=== PATIENT | female | born 1965 | race Caucasian/White ===

== ENCOUNTER 2019-07-01 10:50 | Emergency (ER) | payer OTHER, SELFPAY ==
[2019-07-01 11:00] VITALS: BP 123/68; PULSE 86; RESP 18; TEMP 36.8; O2SAT 98
--- NOTE | 2019-07-01 11:11 | ED.URI ---
HPI - URI/Sore Throat General Chief Complaint: Upper Respiratory Infection Stated Complaint: sore throat/fever Time Seen by Provider: 07/01/19 11:11 Source: patient Mode of arrival: ambulatory Limitations: no limitations History of Present Illness HPI Narrative: Diana Au is a 54 yo female with no PMH who comes with a sore throat and temp of 100.5 x 3 days; states feels tired, not wanting to eat Related Data Allergies Allergy/AdvReac Type Severity Reaction Status Date / Time codeine Allergy Unknown PASSES OUT Verified 07/01/19 11:09 nickel Allergy Unknown RASH Verified 07/01/19 11:09 Penicillins Allergy Rash Verified 07/01/19 11:09 Review of Systems Review of Systems: Narrative: CONSTITUTIONAL:has fever, chills, sweats. EYES: Denies visual changes, redness, discharge. ENT: Denies rhinorrhea, congestion, has sore throat, otalgia. CARDIOVASCULAR: Denies chest pain, palpitations, edema. RESPIRATORY: Denies dyspnea, wheezing, denies cough GASTROINTESTINAL: Denies abdominal pain, nausea, vomiting, diarrhea. GENITOURINARY: Denies dysuria, hematuria, abnormal discharge SKIN: Denies rash or itching. NEUROLOGIC: Denies numbness, or focal weakness. PSYCHIATRIC: Denies anxiety or depression. [facility] Family History Family History Other No acute medical problems Social History Social History Smoking status: Never smoker Alcohol intake: current Comments At time of signature, I agree with nursing past medical, surgical, social and family history. There is no relevant family history pertinent to the presenting complaint. Exam Narrative: Exam Narrative: GENERAL: This is a well-nourished, well-developed patient, in mild distress. HEAD: normocephalic, atraumatic. EYES: Sclera clear/white. Vision is grossly intact. EARS: External ears normal, a Hearing grossly intact. NOSE: External nose normal without nasal discharge, nares without redness, mild rhinorrhea. THROAT: Mucous membranes moist, posterior pharynx erythema with no exudate NECK: Neck supple, non-tender CARDIOVASCULAR: Regular rate and rhythm without murmurs, gallops, or rubs. RESPIRATORY: Clear to auscultation. Breath sounds equal bilaterally. No wheezes, rales, or rhonchi. GASTROINTESTINAL: Abdomen soft, non-tender, SKIN: warm, intact with no suspicious lesions or rash, good texture and turgor. NEURO: awake, alert, and oriented to person, place and time. There were no obvious focal neurologic abnormalities. Steady gait EXTREMITIES: Normal range of motion. BACK: Nontender without deformity Course Course Emergency Course: Strep test negative Started on prednisone, Claritin, Cepacol lozenges Vital Signs Vital signs: Vital Signs Temperature 98.2 F 07/01/19 11:00 Pulse Rate 86 07/01/19 11:00 Respiratory Rate 18 07/01/19 11:00 Blood Pressure 123/68 07/01/19 11:00 Pulse Oximetry 98 07/01/19 11:00 Temperature 98.2 F 07/01/19 11:00 Pulse Rate 86 07/01/19 11:00 Respiratory Rate 18 07/01/19 11:00 Blood Pressure 123/68 07/01/19 11:00 Pulse Oximetry 98 07/01/19 11:00 MDM - URI/Sore Throat Differential Diagnosis Differential diagnosis: Likely upper respiratory infection, pharyngitis and other Lab Data Labs: Strep Screen Presumptive Negative *(Reference Range: Negative)* Discharge Plan Discharge Clinical Impression: Pharyngitis Qualifiers: Pharyngitis/tonsillitis etiology: unspecified etiology Qualified Code(s): J02.9 - Acute pharyngitis, unspecified Patient Disposition: Home, Self-Care Condition: Stable Instructions: Pharyngitis (ED) Prescriptions: New prednisone 20 mg tablet 40 mg PO DAILY Qty: 10 RF: 0 Cepacol Sore Throat-Cough 5-7.5 mg lozenge 1 lozenge PO Q4H PRN (Reason: sore throat) Qty: 16 RF: 0 loratadine [Claritin] 10 mg tablet 10 mg PO D
== END 2019-07-01 11:25 | disposition home or self-care (01) ==
PROVIDERS: Emergency Provider Nurse Practitioner; PCP Internal Medicine
DX: J02.9 Acute pharyngitis, unspecified (principal)
CPT/HCPCS: 87081; 87880; 99213; G0463